=== PATIENT | female | born 1975 | race Caucasian/White ===

== ENCOUNTER 2016-10-07 21:26 | Emergency (ER) | payer BC ==
[2016-10-07] MEDS ORDERED: ASPIRIN 81 MG CHEW TAB ONE (21:56)
[2016-10-07] MEDS ORDERED: LIDOCAINE 2% VISC 15 ML UDC ONE (22:34)
[2016-10-07] MEDS ORDERED: ALU/MAG/SIM 30 ML UDC ONE (22:34)
== END 2016-10-08 01:56 | disposition home or self-care (01) ==
LOC: ER 21:26
CPT/HCPCS: 36415; 71010; 80053; 82550; 83690; 83735; 84484; 85025; 85610; 85730; 93005